=== PATIENT | female | born 1985 | race African-American/Black ===

== ENCOUNTER → 2016-11-21 | Day surgery (SDC) | payer OTHER ==
[~2016-11-21] MED LIST: LIDOCAINE 1%/EPI 1:100,000 20 ML VIAL. ONE; PROAIR HFA8.5 GM IH
[2016-11-21 07:22] VITALS: BP 150/94
--- NOTE | 2016-11-21 08:35 | DISCH ---
DISCHARGE INSTRUCTIONS Condition on Discharge Condition on Discharge: Stable Activity After Discharge Activity Instructions for Disc: Activity as tolerated Diet after Discharge Diet after Discharge: Regular Wound Incision Care Other wound/incision instructi: May shower in 24 hours Contacting the after DC Call your doctor for: If your condition worsens Follow-Up Follow up with: Dr Masters in 2 weeks ALBINA MASTERS MD Nov 21, 2016 08:35
--- NOTE | 2016-11-21 08:55 | OP ---
DATE OF SURGERY: 11/21/2016 PREOPERATIVE DIAGNOSIS: Chest wall mass. POSTOPERATIVE DIAGNOSIS: Chest wall mass. PROCEDURE: Excision of mass. SURGEON: Ilir Masters MD INDICATIONS: A 31-year-old female who has complained of a lump between her breast on her chest ____ getting larger approximately 2 cm in size. Procedure of excision was explained to the patient in detail. Risks, benefits were also discussed including bleeding and infection. Alternatives of this procedure were also discussed with the patient who seemed to understand and gave a verbal and written consent to have the procedure performed. DESCRIPTION OF PROCEDURE: The patient was taken to the minor's room and placed in the supine position. The area was prepped and draped in usual sterile fashion using ChloraPrep. An area around the mass was injected with 1% lidocaine with epinephrine. An elliptical incision was made with #15 blade scalpel. This was carried down through the subcutaneous tissue. The mass was sharply excised and sent for pathology. The wound was then closed in two layers, deep layer with running 3-0 Vicryl and the skin was reapproximated with 4-0 subcuticular Monocryl. Mastisol, Steri-Strips and island dressing were applied. The patient tolerated the procedure well, was discharged to home in stable condition. All sponge, instrument counts listed as correct. Estimated blood loss was 5 mL. ILIR MASTERS MD DR: COOKIE/avelino JOB#: [id number] / [id number]
--- NOTE | 2016-11-24 14:27 | PATHOLOGY ---
PATHOLOGY REPORT * * * * * * * * FINAL DIAGNOSIS: Skin and subcutaneous tissue, chest: - Epidermal inclusion cyst. COMMENT: There is no evidence of malignancy. (JPM:pit; 11/24/2016) REPORT ELECTRONICALLY SIGNED BY: Omari Ghosh M.D. DATE/TIME: 11/24/2016 14:27 * * * * * * * * GROSS PATHOLOGY: Received in formalin labeled "Dawson King, sebaceous cyst on chest," is a 1.7 x 0.3 cm ellipse of skin displaying a dark anthony brown surface. The deep surface shows a large, well circumscribed dark purple anthony cyst, measuring 2.0 x 1.7 x 1.7 cm. The margins are inked black. The cyst contains dark anthony brown, friable material. Yard Hostler sections are submitted in cassette A1. (JPM; 11/21/16) INITIAL CPT CODE(S): A; 65049 Professional services performed [place] [facility] [place] [address] Technical services performed by [facility] at [address] [place] [address]. SPECIMEN(S) RECEIVED: A.Sebaceous cyst on chest CLINICAL HISTORY: Cyst on chest PATIENT: DAWSON KING /AGE: 1103/20/1985 (Age: 31) PATIENT #: [id number] ALT CASE #: SPECIMEN COLLECTION DATE: 11/21/2016 SPECIMEN RECEIVED DATE: 11/21/2016 [facility] - [address] [place] [address] - PHONE: [phone] * * * END OF REPORT * * *
== END | disposition home or self-care (01) ==
LOC: SURG 07:02
PROVIDERS: ATTEND Surgery
DX: L72.0 Epidermal cyst (principal); Z90.49 Acquired absence of other specified parts of digestive tract; Z83.3 Family history of diabetes mellitus; Z82.49 Family history of ischemic heart disease and other diseases of the circulatory system
CPT/HCPCS: 11402; 12031; J3490; 88304

== ENCOUNTER 2017-07-28 18:58 | Emergency (ER) | payer OTHER ==
[2017-07-28 19:26] LABS: BILIRUBIN,URINE NEGATIVE (NEG); CLARITY,URINE CLEAR; COLOR,URINE YELLOW; GLUCOSE,URINE NEGATIVE (NEG); NITRITE,URINE NEGATIVE (NEG); PROTEIN,URINE NEGATIVE (NEG-TRACE)
[2017-07-28 19:37] LABS: BACTERIA,URINE FEW /HPF (0-FEW); RBC,URINE 0 /HPF (0-2); SQUAMOUS EPITHELIAL CELL,UR FEW /LPF; WBC,URINE OCC /HPF (0-4)
[2017-07-28] MEDS: AZITHROMYCIN 250 MG TABLET. PO (19:39)
[2017-07-28] MEDS: metroNIDAZOLE 500 MG TABLET PO (19:39)
[2017-07-28] MEDS: cefTRIAXone IM 250 MG VIAL IM (19:40)
[2017-07-30 14:27] LABS: CHLAMYDIA PROBE Negative (Negative); GC PROBE Negative (Negative)
== END 2017-07-28 19:49 | disposition home or self-care (01) ==
LOC: ER 18:58
DX: N76.0 Acute vaginitis (principal); B96.89 Other specified bacterial agents as the cause of diseases classified elsewhere; Z20.2 Contact with and (suspected) exposure to infections with a predominantly sexual mode of transmission; J45.909 Unspecified asthma, uncomplicated; Z98.51 Tubal ligation status; Z90.49 Acquired absence of other specified parts of digestive tract
CPT/HCPCS: 81001; 87491; 87591; 96372; 99284-25; J0696; Q0111; Q0144

== ENCOUNTER 2018-01-05 17:19 | Emergency (ER) | payer OTHER ==
[~2018-01-05] VITALS: Ht 149.9 cm; Wt 81.6 kg
[~2018-01-05 17:19] MED LIST changes: -LIDOCAINE 1%/EPI 1:100,000 20 ML VIAL. ONE; +METR500T PO
[2018-01-05 18:29] VITALS: BP 147/78
[2018-01-05 18:49] LABS: BILIRUBIN,URINE NEGATIVE (NEG); CLARITY,URINE CLOUDY; COLOR,URINE YELLOW; NITRITE,URINE NEGATIVE (NEG); PROTEIN,URINE NEGATIVE (NEG-TRACE); UROBILINOGEN,URINE 0.2 mg/dL (0.2 mg/dL)
[2018-01-05 18:57] LABS: BACTERIA,URINE FEW /HPF (0-FEW); RBC,URINE 0 /HPF (0-2); SQUAMOUS EPITHELIAL CELL,UR MOD /LPF
[2018-01-05] MEDS ORDERED: AZITHROMYCIN 250 MG TABLET. PO ONE (19:15)
[2018-01-05] MEDS ORDERED: cefTRIAXone IM 250 MG VIAL IM ONE (19:15)
[2018-01-05] MEDS ORDERED: METR500T PO (19:47)
--- NOTE | 2018-01-05 19:49 | PHYS DOC ---
Past Medical History Past Medical History: Asthma Past Surgical History: Cholecystectomy, Tubal ligation Alcohol Use: Occasionally Drug Use: None Adult General Chief Complaint Chief Complaint: PELVIC PAIN HPI HPI Patient is a 32 year old female who presents with vaginal discharge and odor. The patient states that her symptoms been increasing over the past few days. The patient denies nausea, vomiting, fever or possibility of . She is requesting prophylactic treatment for sexually transmitted diseases in the emergency department. Review of Systems Review of Systems Constitutional: Denies fever or chills [] Eyes: Denies change in visual acuity, redness, or eye pain [] HENT: Denies nasal congestion or sore throat [] Respiratory: Denies cough or shortness of breath [] Cardiovascular: No additional information not addressed in HPI [] GI: Denies abdominal pain, nausea, vomiting, bloody stools or diarrhea [] : See history of present illness Musculoskeletal: Denies back pain or joint pain [] Integument: Denies rash or skin lesions [] Neurologic: Denies headache, focal weakness or sensory changes [] Endocrine: Denies polyuria or polydipsia [] All other systems were reviewed and found to be within normal limits, except as documented in this note. Current Medications Current Medications Current Medications Medications (Trade) Dose Ordered Sig/Dexter Start Time Stop Time Status Last Admin Dose Admin Azithromycin (Zithromax) 1,000 mg 1X ONCE 01/05/18 19:15 01/05/18 19:16 DC 01/05/18 19:43 1,000 MG Ceftriaxone Sodium (Rocephin Im) 250 mg 1X ONCE 01/05/18 19:15 01/05/18 19:16 DC 01/05/18 19:44 250 MG Allergies Allergies Allergies Coded Allergies Type Severity Reaction Last Updated Verified No Known Drug Allergies 11/21/16 No Physical Exam Physical Exam Constitutional: Well developed, well nourished, no acute distress, non-toxic appearance. [] Cardiovascular:Heart rate regular rhythm, no murmur [] Lungs & Thorax: Bilateral breath sounds clear to auscultation [] Abdomen: Bowel sounds normal, soft, no tenderness, no masses, no pulsatile masses. [] Skin: Warm, dry, no erythema, no rash. [] Back: No tenderness, no CVA tenderness. [] Neurologic: Alert and oriented X 3, normal motor function, normal sensory function, no focal deficits noted. [] Psychologic: Affect normal, judgement normal, mood normal. Pelvic Exam: Shared Services Representative present Abdomen: Nontender External Genitalia: Normal Skin Speculum: Normal vaginal mucosa, creamy white cervical discharge Bimanual: No adnexal masses or tenderness, No CMT Current Patient Data Vital Signs Vital Signs Date Time Temp Pulse Resp B/P (MAP) Pulse Ox O2 Delivery O2 Flow Rate FiO2 01/05/18 18:29 98.8 72 16 147/78 (101) 98 Room Air 98.8 Lab Values Laboratory Tests Test 01/05/18 18:30 01/05/18 18:38 Urine Collection Type Unknown Urine Color Yellow Urine Clarity Cloudy Urine pH 8.0 Urine Specific [place] 1.025 Urine Protein Negative mg/dL (NEG-TRACE) Urine Glucose (UA) Negative mg/dL (NEG) Urine Ketones (Stick) Negative mg/dL (NEG) Urine Blood Negative (NEG) Urine Nitrite Negative (NEG) Urine Bilirubin Negative (NEG) Urine Urobilinogen Dipstick 0.2 mg/dL (0.2 mg/dL) Urine Leukocyte Esterase Trace (NEG) Urine RBC 0 /HPF (0-2) Urine WBC 1-4 /HPF (0-4) Urine Squamous Epithelial Cells Mod /LPF Urine Bacteria Few /HPF (0-FEW) Urine Mucus Mod /LPF POC Urine HCG, Qualitative Hcg negative (Negative) Microbiology 01/05/18 Wet Prep - Final, Complete EKG EKG [] Radiology/Procedures Radiology/Procedures [] Course & Med Decision Making Course & Med Decision Making Pertinent Labs and Imaging studies reviewed. (See chart for details) [] Dragon Disclaimer Dragon Disclaimer This electronic medical record was generated, in whole or in part, using a voice recognition dictation system. Departure Departure Impression: Primary Impression: Bacterial vaginosis Additional Impression: Concern about STD in female without diagnosis Disposition: 01 HOME, SELF-CARE Condition: STABLE Referrals: SARAH GASCA MD (PCP) Patient Instructions: Bacterial Vaginosis, Sexually Transmitted Disease Additional Instructions: Take the medication as directed. Follow-up with your primary care provider or wall insulation sprayer for further health care needs. We will call only if you have positive cultures. You were treated presumptively in the emergency department so you would not need to return for treatment if those come back positive. Scripts Metronidazole (FLAGYL) 500 Mg Tablet 1 TAB PO BID, #14 TAB Prov: CAESAR GOODMAN APRN 01/05/18 Problem Qualifiers CAESAR GOODMAN APRN Jan 05, 2018 19:49
[2018-01-07 14:31] LABS: GC PROBE Negative (Negative)
== END 2018-01-05 20:14 | disposition home or self-care (01) ==
LOC: ER 17:19
DX: N76.0 Acute vaginitis (principal); B96.89 Other specified bacterial agents as the cause of diseases classified elsewhere; Z11.3 Encounter for screening for infections with a predominantly sexual mode of transmission; J45.909 Unspecified asthma, uncomplicated; Z90.49 Acquired absence of other specified parts of digestive tract; Z98.51 Tubal ligation status
CPT/HCPCS: 81001; 81025; 87086; 87491; 87591; 96372; 99284; J0696; Q0111; Q0144

== ENCOUNTER 2018-07-23 15:21 | Emergency (ER) | payer OTHER ==
[~2018-07-23] VITALS: Ht 149.9 cm; Wt 77.1 kg
[~2018-07-23 15:21] MED LIST changes: +ALBU2.5V8 IH; -PROAIR HFA8.5 GM IH
[2018-07-23 15:25] VITALS: BP 142/67
[2018-07-23 15:44] LABS: BILIRUBIN,URINE NEGATIVE (NEG); CLARITY,URINE CLOUDY; COLOR,URINE YELLOW; NITRITE,URINE NEGATIVE (NEG); PROTEIN,URINE NEGATIVE (NEG-TRACE)
[2018-07-23] MEDS ORDERED: AZITHROMYCIN 250 MG TABLET. PO ONE (15:45)
[2018-07-23] MEDS ORDERED: cefTRIAXone IM 250 MG VIAL IM ONE (15:45)
--- NOTE | 2018-07-23 15:47 | PHYS DOC ---
Past Medical History Past Medical History: Asthma Past Surgical History: Cholecystectomy, Tubal ligation Alcohol Use: Occasionally Drug Use: None Adult General Chief Complaint Chief Complaint: PELVIC PAIN HPI HPI Patient is a 33 year old female who presents with 1 week of lower abdominal cramping off and on and yellow, odorous vaginal discharge. Review of Systems Review of Systems Constitutional: Denies fever or chills [] Eyes: Denies change in visual acuity, redness, or eye pain [] HENT: Denies nasal congestion or sore throat [] Respiratory: Denies cough or shortness of breath [] Cardiovascular: No additional information not addressed in HPI [] GI: lower abdominal pain, denies nausea, vomiting, bloody stools or diarrhea [] : vaginal discharge. Denies dysuria or hematuria [] Musculoskeletal: Denies back pain or joint pain [] Integument: Denies rash or skin lesions [] Neurologic: Denies headache, focal weakness or sensory changes [] All other systems were reviewed and found to be within normal limits, except as documented in this note. Current Medications Current Medications Current Medications Medications (Trade) Dose Ordered Sig/Dexter Start Time Stop Time Status Last Admin Dose Admin Azithromycin (Zithromax) 1,000 mg 1X ONCE 07/23/18 15:45 07/23/18 15:46 DC 07/23/18 16:08 1,000 MG Ceftriaxone Sodium (Rocephin Im) 250 mg 1X ONCE 07/23/18 15:45 07/23/18 15:46 DC 07/23/18 16:07 250 MG Allergies Allergies Allergies Coded Allergies Type Severity Reaction Last Updated Verified No Known Drug Allergies 11/21/16 No Physical Exam Physical Exam Constitutional: Well developed, well nourished, no acute distress, non-toxic appearance. [] HENT: Normocephalic, atraumatic, bilateral external ears normal, oropharynx moist, no oral exudates, nose normal. [] Eyes: PERRLA, EOMI, conjunctiva normal, no discharge. [] Neck: Normal range of motion, no tenderness, supple, no stridor. [] Cardiovascular:Heart rate regular rhythm, no murmur [] Lungs & Thorax: Bilateral breath sounds clear to auscultation [] Abdomen: Bowel sounds normal, soft, Left lower tenderness, no masses, no pulsatile masses. [] Skin: Warm, dry, no erythema, no rash. [] Back: No tenderness, no CVA tenderness. [] Extremities: No tenderness, no cyanosis, no clubbing, ROM intact, no edema. [] Neurologic: Alert and oriented X 3, normal motor function, normal sensory function, no focal deficits noted. [] Psychologic: Affect normal, judgement normal, mood normal. [] Current Patient Data Vital Signs Vital Signs Date Time Temp Pulse Resp B/P (MAP) Pulse Ox O2 Delivery O2 Flow Rate FiO2 07/23/18 15:25 98.9 98 19 142/67 (92) 100 Room Air 98.9 Lab Values Laboratory Tests Test 07/23/18 15:30 07/23/18 15:34 Urine Color Yellow Urine Clarity Cloudy Urine pH 7.0 Urine Specific [place] 1.025 Urine Protein Negative mg/dL (NEG-TRACE) Urine Glucose (UA) Negative mg/dL (NEG) Urine Ketones (Stick) Negative mg/dL (NEG) Urine Blood Negative (NEG) Urine Nitrite Negative (NEG) Urine Bilirubin Negative (NEG) Urine Urobilinogen Dipstick 1.0 mg/dL (0.2 mg/dL) Urine Leukocyte Esterase Negative (NEG) Urine RBC 0 /HPF (0-2) Urine WBC Occ /HPF (0-4) Urine Squamous Epithelial Cells None /LPF Urine Amorphous Sediment Present /HPF Urine Bacteria 0 /HPF (0-FEW) POC Urine HCG, Qualitative Hcg negative (Negative) Microbiology 07/23/18 Wet Prep - Final, Complete EKG EKG [] Radiology/Procedures Radiology/Procedures [] Course & Med Decision Making Course & Med Decision Making Patient is a 33 year old female who presents with 1 week of lower abdominal cramping off and on and yellow, odorous vaginal discharge. Patient denies nausea , vomiting, diarrhea, fever. Patient denies any pain at this time. Patient has left lower abdominal tenderness with palpation but patient states it's only slightly tender. Abdomen is soft and there are no masses. Lungs are clear to auscultation in all lobes. Vital signs are within normal limits. Patient is treated for Chlamydia and gonorrhea today in the ED. I have sent off a wet prep and a chlamydia and gonorrhea culture sent off and patient is told that she will be called in 48 hours if the results are positive. Wet prep shows bacterial vaginosis. Patient will be treated for bacterial vaginosis. Urinalysis shows no infection. Patient to follow up with her primary care physician or fleet operations manager if pain persists. Pelvic Exam: Esol Teacher present Abdomen: Left lower External Genitalia: Normal Skin Speculum: Normal vaginal mucosa, White yellow cervical discharge, Cervical os reddened but not friable or tender Bimanual: No adnexal masses or tenderness, No CMT [] Dragon Disclaimer Dragon Disclaimer This electronic medical record was generated, in whole or in part, using a voice recognition dictation system. Departure Departure Impression: Primary Impression: Concern about STD in female without diagnosis Additional Impression: Bacterial vaginosis Disposition: HOME, SELF-CARE Condition: STABLE Referrals: SARAH GASCA MD (PCP) Patient Instructions: Sexually Transmitted Disease Additional Instructions: Follow-up U primary care physician or fleet operations manager. Take medication as prescribed. Take ibuprofen for any pain and try using a heating pad for any cramping. Scripts Metronidazole (METRONIDAZOLE) 500 Mg Tablet 1 TAB PO BID for 7 Days, #14 TAB Prov: YAW COLLINS APRN 07/23/18 Problem Qualifiers YAW COLLINS APRN Jul 23, 2018 15:47
[2018-07-23 15:57] LABS: AMORPHOUS SEDIMENT,UR PRESENT /HPF; BACTERIA,URINE 0 /HPF (0-FEW); RBC,URINE 0 /HPF (0-2); WBC,URINE OCC /HPF (0-4)
[2018-07-23] MEDS ORDERED: METR-34 PO (16:19)
[2018-07-26 20:10] LABS: GC PROBE Negative (Negative)
== END 2018-07-23 16:40 | disposition home or self-care (01) ==
LOC: ER 15:21
DX: N76.0 Acute vaginitis (principal); B96.89 Other specified bacterial agents as the cause of diseases classified elsewhere; Z20.2 Contact with and (suspected) exposure to infections with a predominantly sexual mode of transmission; J45.909 Unspecified asthma, uncomplicated; Z90.49 Acquired absence of other specified parts of digestive tract; Z98.51 Tubal ligation status
CPT/HCPCS: 81001; 81025; 87491; 87591; 96372; 99283; J0696; Q0111; Q0144

== ENCOUNTER → 2018-12-03 | Outpatient (CLI) | payer MEDICAID, OTHER ==
[~2018-12-03] MED LIST changes: +METR-34 PO
[2018-12-03 13:58] LABS: ALBUMIN 3.8 g/dL (3.4-5.0); DIRECT BILIRUBIN 0.1 mg/dL (0.0-0.2); TOTAL BILIRUBIN 0.2 mg/dL (0.2-1.0); TOTAL PROTEIN 7.8 g/dL (6.4-8.2)
== END | disposition home or self-care (01) ==
LOC: LAB 13:24
PROVIDERS: ATTEND Podiatrist Foot & Ankle Surgery
DX: B35.1 Tinea unguium (principal)
CPT/HCPCS: 36415; 80076